=== PATIENT | male | born 1995 | race Caucasian/White ===

== ENCOUNTER 2019-04-27 14:39 | Emergency (ER) | payer OTHER ==
[~2019-04-27] VITALS: Ht 177.8 cm; Wt 62.0 kg
[2019-04-27] MEDS ORDERED: ONDANSETRON4 MG PO (16:14)
[2019-04-27] MEDS ORDERED: COMBIVIR 1501 COMBO PO (16:14)
[2019-04-27] MEDS ORDERED: CRIXIVAN400 MG PO (16:14)
[2019-04-27] MEDS ORDERED: OFLOXACIN0.3 % OS (16:15)
[2019-04-27 16:52] LABS: HEMATOCRIT 47.1 % (39.0-50.0); HEMOGLOBIN 16.1 g/dl (14.0-18.0); IMMATURE GRANULOCYTES 0.6 % (0.0-5.0); MEAN CELL VOLUME 90.8 fL CALC (80.0-100.0); MEAN CORPUSCULAR HGB CONC 34.2 g/L CALC (32.0-36.0); NEUT# 4.91 thou/uL (1.82-7.42); RED BLOOD COUNT 5.19 mill/uL (4.70-6.10); RED CELL DISTRI WIDTH 11.9 % (11.5-15.5)
[2019-04-27 17:17] LABS: ALBUMIN 4.8 g/dL (3.2-5.0); ALKALINE PHOSPHATASE 68 u/l (38-126); ANION GAP 17 (6-22 (CALC)); BILIRUBIN, TOTAL 0.7 mg/dL (0.0-1.4); BUN 11 mg/dL (9-20); BUN/CREATININE RATIO 16 (12-20 (CALC)); CARBON DIOXIDE 26 mmol/l (22-30); CHLORIDE 103 mmol/l (95-108); CREATININE 0.7 mg/dL (0.7-1.3); GFR > 60 ML/MIN (>=60 (CALC)); GFR FOR AFR.AMER. > 60 ML/MIN (>=60 (CALC)); POTASSIUM 4.1 mmol/l (3.5-5.1); SGOT/AST 31 u/l (17-59); SODIUM 141 mmol/l (137-146); TOTAL PROTEIN 7.8 g/dL (6.3-8.2)
[2019-04-27 17:42] VITALS: BP 140/87
== END 2019-04-27 17:42 | disposition home or self-care (01) | DRG 951 ==
LOC: ED 14:39
PROVIDERS: Family Medicine
DX: Z77.21 Contact with and (suspected) exposure to potentially hazardous body fluids (principal)